=== PATIENT | male | born 1995 | race Caucasian/White ===

== ENCOUNTER 2021-10-15 12:00 | Emergency (ER) | payer OTHER ==
[2021-10-15 12:05] VITALS: BP 136/81; PULSE 75; TEMP 98; BMI 27.2
[2021-10-15 13:12] LABS: BASO % 0.4 % (0-2.0); EOS % 2.5 % (0-4.5); HEMATOCRIT 50.3 % (35.4-49); HEMOGLOBIN 16.9 GM/dL (11.7-16.9); LYMPH % 15.8 % (8-40); MCH 28.2 pg (25.7-33.7); MCHC 33.6 g/dl (32.0-35.9); MEAN CELL VOLUME 83.9 fl (80-96); MEAN PLT VOLUME 8.6 fl (7.5-11.1); MONO % 8.6 % (3.8-10.2); NEUT % 72.7 % (42.8-82.8); PLATELET COUNT 294 10^3/uL (134-434); RDW 13.7 % (11.9-15.9)
[2021-10-15 13:20] LABS: INR 1.1 (0.83-1.09); PROTHROMBIN TIME (PATIENT) 12.7 SEC (9.7-13.0)
[2021-10-15 13:50] LABS: ACTIVATED PTT 36.1 SECONDS (25.2-36.5)
[2021-10-15 13:51] LABS: BLOOD UREA NITROGEN 13.3 mg/dL (7-18)
[2021-10-15 13:52] LABS: ALBUMIN 4.9 g/dl (3.4-5.0); MAGNESIUM 2.3 mg/dL (1.8-2.4)
[2021-10-15 13:56] LABS: BILIRUBIN,TOTAL 0.8 mg/dL (0.2-1); TOT PROT 8.4 g/dl (6.4-8.2)
== END 2021-10-15 15:32 | disposition home or self-care (01) ==
LOC: JER 12:00
DX: R42 Dizziness and giddiness (principal)
CPT/HCPCS: 36415; 76870-TC; 80053; 83735; 85025; 85610; 85730; 86850; 86900; 86901; 93005; 93010; 99285-25